=== PATIENT | female | born 1945 | race Caucasian/White ===

== ENCOUNTER → 2016-10-09 | Outpatient (CLI) | payer MEDICARE, OTHER ==
[2016-10-09 15:49] LABS: ANION GAP 10.2 (10.0-19.0); BLOOD UREA NITROGEN 18 mg/dL (6-24); CHLORIDE 105 mMol/L (96-110); CO2 27 mMol/L (22-32); CREATININE 0.9 mg/dL (0.5-1.1); ESTIMATED GFR (MDRD EQUATION) > 60; POTASSIUM 4.2 mMol/L (3.7-5.1); SODIUM 138 mMol/L (135-145)
== END | disposition disaster alternative care site (69) ==
LOC: LGSOS 14:41
PROVIDERS: Internal Medicine Interventional Cardiology
DX: I25.10 Atherosclerotic heart disease of native coronary artery without angina pectoris (principal)

== ENCOUNTER → 2016-12-30 | Outpatient (CLI) | payer MEDICARE, OTHER ==
--- NOTE | ~2016-12-30 | ESTC ---
Cardiac Perfusion Imaging Demographics Patient Name VERONICA Cavanaugh Gender Female Patient Number [id number] Race Visit Number [id number] Ethnicity [employer] ID Room Number Accession Number [id number] Height 65 inches Date of 1945 Weight 205 pounds Interpreting Manisha Duval Date of study 12/30/2016 Physician Supervising /RAFFIP Manisha MOTTA Technologist Ambar Powell MD Ordering Physician Manisha Duval Stress MD film technician Stress ECG Reading Manisha Duval Nurse Dhruv Sage RN Physician MD Alexis Sparks RN Medications Reviewed with Patient prior to Procedure. Procedure Procedure Type: Nuclear Stress Test:Cardiolite Stress Test Procedure Start time: 12/30/2016 08:45 Indications: Pre surgical clearance. Risk Factors The patient risk factors include:prior PCI;obesity, former tobacco use, hypertension, prior valve surgery/procedure and dyslipidemia. Conclusions Summary Lexiscan with no symptoms but with hypertensive response. No EKG changes of ischemia. Small to medium fixed defect of severe degree involving the basal third of the septum. Moderate hypokinesia involving the basal third of the septum. LVEF: 52%. Stress Protocols Resting ECG RSR. Pre-stress physical exam: Un changed. Predicted HR: 149 bpm ECG Findings No ECG changes suggestive of ischemia. Arrhythmias Rare PVCs. Symptoms No symptoms with Lexiscan infusion. Stress Interpretation Asymptomatic with Lexiscan. Hypertensive BP response. No EKG changes of ischemia. Rare PVCs. Imaging Results High risk findings Summed scores - Summed stress score: 12 - Summed rest score: 14 - Summed difference score: -2 Stress ejection Ejection fraction:52 % EDV :160 ml ESV :77 ml Stroke volume :83 ml LV mass :157 gr LV size:Normal Normal LV function Imaging Protocols Rest Stress Isotope:Tc99m Sestamibi IV Isotope dose:44.2 mCi Isotope dose:15 mCi Date:12/30/2016 09:17 Date:12/30/2016 07:35 Technique: SPECT Technique: Gated Supine SPECT Supine Scan Time:45-60 minutes post Scan Time:45-60 minutes post injection injection Procedure Medications - Regadenoson (Lexiscan) 0.4 mg IV over 10-15 sec. I.V. 0.4 mg. Medications administered per verbal order and read back to physician prior to administration. Medical History Admission Data Admission date: 12/30/2016 Admission Time: 07:12 Hospital Status: Outpatient. Signatures dtt: Simin Dyer dtd: 12/30/16 0845 Physician Self Edit
== END | disposition disaster alternative care site (69) ==
LOC: GRAD 07:12
DX: Z01.818 Encounter for other preprocedural examination (principal); Z86.79 Personal history of other diseases of the circulatory system
CPT/HCPCS: A9500; J2785